=== PATIENT | male | born 1995 | race Caucasian/White ===

== ENCOUNTER 2019-05-20 18:11 | Emergency (ER) | payer OTHER ==
[~2019-05-20] VITALS: Ht 175.3 cm; Wt 68.2 kg
[~2019-05-20 18:11] MED LIST: NEXIUM 20MG20 MG PO; NORCO 325 MG-51 TAB PO; PHENERGAN 25 TA25 MG PO
[2019-05-20 18:22] VITALS: TEMP 98.3
[2019-05-20] MEDS ORDERED: MOTRIN 800800 MG/TAB PO (18:40)
[2019-05-20] MEDS ORDERED: FLEXERIL 1010 MG/TAB PO (18:40)
[2019-05-20 19:43] VITALS: BP 125/70; PULSE 80
== END 2019-05-20 19:44 | disposition home or self-care (01) ==
LOC: COL.ER 18:11
DX: S13.4XXA Sprain of ligaments of cervical spine, initial encounter (principal); V89.2XXA Person injured in unspecified motor-vehicle accident, traffic, initial encounter

== ENCOUNTER 2019-10-28 23:18 | Emergency (ER) | payer OTHER ==
[~2019-10-28 23:18] MED LIST changes: +FLEXERIL 1010 MG/TAB PO; +MOTRIN 800800 MG/TAB PO
== END 2019-10-28 23:19 | disposition left against medical advice (07) ==
LOC: COL.ER 23:18
DX: Z72.89 Other problems related to lifestyle (principal)